=== PATIENT | male | born 1960 | race Hispanic/Latino ===

== ENCOUNTER 2017-01-12 11:25 | Emergency (ER) | payer MEDICARE, MEDICAID ==
[~2017-01-12] VITALS: Ht 167.6 cm; Wt 65.5 kg
[~2017-01-12 11:25] MED LIST: CYCL10TA9 PO; GABA-502 PO; LISI40TA PO; OXYC5CAP4 PO
[2017-01-12 11:29] VITALS: BP 162/89; PULSE 79; RESP 16; O2SAT 96
--- NOTE | 2017-01-12 12:26 | ED.REPORT ---
HPI-General Illness Date of Service Jan 12, 2017 ED Provider: Santiago is a 56-year-old male presenting with chief complaint of neck, knee and back pain. States he was seen at [facility] yesterday, and given hydrocodone/acetaminophen. He is asking for help. Admitted history of neck surgery with implant devices as well as a steroid injection in his neck approximately 2 months ago. Denies numbness, tingling, weakness or pain in lower extremity. Denies fever, DM, HIV, organ transplant, immunosuppression, recent surgery, recent infection, history of back surgery, and IV drug use. Denies bowel/bladder dysfunction and saddle anesthesia. Nursing Notes Stated Complaint: NECK AND BACK PAIN Chief Complaint: Back Pain or Injury Nursing Notes Reviewed: Yes Allergies: Coded Allergies: acetaminophen (Verified Allergy, Unknown, 08/31/14) Uncoded Allergies: STEROID (Allergy, Severe, 01/12/17) ASPRIN (Allergy, Unknown, 09/04/14) Scheduled Gabapentin (Gabapentin) 300 Mg Capsule 300 MG PO BID Lisinopril (Lisinopril) 40 Mg Tablet 40 MG PO DAILY Scheduled PRN Cyclobenzaprine (Cyclobenzaprine) 10 Mg Tablet 10 MG PO TID PRN PRN Spasm oxyCODONE (oxyCODONE) 5 Mg Capsule 5 MG PO Q4H PRN PRN For Pain General Time Seen by MD: 12:25 Chief Complaint Other (pain) Past Medical History Past Medical History Kidney stone Status post C4-5, C5-6, C6-7 anterior cervical discectomy and fusion, with allograft bone x3, and anterior cervical plating from C4-C7 Reports: Hypertension Past Surgical History Lithotripsy R knee Reports: Back/neck surgery Smoking History Current Every Day Smoker, Light Tobacco Smoker Social History Alcohol Use: "Social" Ambulatory Status Independent Review of Systems Negative unless stated otherwise in history of present illness Physical Exam General: Well appearing, well developed, well nourished, no acute distress. Neck/back: Normal to inspection, negative midline spinous process tenderness, good range of motion. Head: Atraumatic, normocephalic. Eyes: No scleral icterus or injection. No discharge. Vision grossly intact. ENT: Voice clear, hearing grossly intact. Respiratory: No respiratory distress, no increased work of breathing. Speaks in complete sentences. Skin: Warm and dry. Neurological: Normal gait, toe walk, heel walk. Patellar and Achilles reflexes present and equal B/L. Sensation to sharp touch intact at medial leg, dorsal foot and lateral foot B/L. negative seated straight leg raise, negative seated cross straight leg raise. Psychological: alert and oriented. Speech appropriate, linear and logical. Behavior appropriate. Vital Signs Vital Signs Date Time Temp Pulse Resp B/P Pulse Ox O2 Delivery O2 Flow Rate FiO2 01/12/17 13:09 78 18 01/12/17 11:29 37.1 79 16 162/89 96 Room Air Elevated blood pressure Re-Eval/Medical Decision Med Decision/Clinical Course Santiago presents emergency Department with complaint of chronic neck, back and knee pain. Reports being seen at [facility] yesterday and given a small amount of [place]. Patient states the pain is too bad and he needs help. He provides a difficult history, and cannot name his primary care provider, produces the card of a pain clinician. Records indicate he is seen for back pain in this department several months ago. His examination is benign with normal neurological examination, nontender spine, normal vitals specifically afebrile. Back pain is without red flag symptoms for acute disc herniation, cauda equina, infection, hematoma, trauma, pyelonephritis, nephrolithiasis, AAA , cancer. I believe this is musculoskeletal back pain, as well as chronic knee pain, stable and safe to be discharged. I contacted the patient's primary care provider, they will contact the patient to arrange follow-up. Provided shot of ketorolac, patient states he is allergic to acetaminophen although he currently takes [place]. Advised regarding primary care follow-up, provided emergency return precautions. Patient verbalized understanding of, and consent to, the plan. Discharge & Departure Primary Impression: Chronic pain Chronic pain type: other chronic pain Qualified Code: G89.29 - Other chronic pain Additional Impression: Elevated blood pressure reading Disposition: Home Discharge Condition All VS Reviewed: Yes Patient Instructions: Chronic Back Pain (ED), Chronic Neck Pain (DC) Additional Instructions: Evaluation for neck, back and knee pain in the emergency department include interview and physical examination all of which are reassuring that her pain is not due to an immediately dangerous condition. I believe this is chronic pain, and will need to be addressed by your primary care provider. I contacted Cherri Harden's office, they will be contacting you to make an appointment. It is very important to go to this appointment. I recommend 600 mg ibuprofen every 6 hours for pain until you consult with your primary care provider Return to the emergency Department for new symptoms such as numbness to any legs , loss of bowel control or inability to urinate. Referrals: Maddy Harden (PCP) EDSupervising Provider for APC: Manny Hoskins MD Attending Statement Attending attestation: I saw this patient in conjunction with Blas Espinoza PA-C. I agree with the workup, evaluation, treatment and disposition. Manny Hoskins MD copies to: Maddy Harden Beck O MD Jan 12, 2017 12:26 Blas Espinoza PA-C Jan 12, 2017 12:59
[2017-01-12 13:09] VITALS: PULSE 78; RESP 18
== END 2017-01-12 13:15 | disposition home or self-care (01) ==
LOC: SED 11:25
DX: G89.29 Other chronic pain (principal); I10 Essential (primary) hypertension; M54.2 Cervicalgia; F17.200 Nicotine dependence, unspecified, uncomplicated; Z98.890 Other specified postprocedural states; Z87.442 Personal history of urinary calculi; Z88.6 Allergy status to analgesic agent; Z88.8 Allergy status to other drugs, medicaments and biological substances
CPT/HCPCS: 96372; 99283; J1885